=== PATIENT | female | born 1950 | race Caucasian/White ===

== ENCOUNTER 2018-05-08 06:16 | Day surgery (SDC) | payer MEDICARE ==
[2018-05-08] MEDS ORDERED: Sodium Bicarbonate 8.4% SYR* 10 ML SYRINGE ONE (07:18)
[2018-05-08] MEDS ORDERED: Lidocain 1% EPI 1:100,000 * 30 ML MDV ONE (07:18)
[2018-05-08] MEDS ORDERED: ROPIVACAINE 5 MG/ML 30 ML BTL (0.5%) ONE (07:27)
[2018-05-08 08:08] VITALS: BP 142/74
--- NOTE | 2018-05-09 01:08 | OP ---
DATE OF OPERATION: 05/08/18 [facility] DATE OF : 52 SURGEON: Conrado Mckeon MD MECHANIST: KAROLYN Broderick ANESTHESIOLOGIST: None. ANESTHESIA: Local only with 1% lidocaine with epinephrine and bicarbonate. PRE-OP DIAGNOSIS: Right trigger thumb. POST-OP DIAGNOSIS: Right trigger thumb. OPERATIVE PROCEDURE: Right trigger thumb release. INDICATIONS: Kelin has had a thumb that has been locked in extension for about 3 months. We talked about treatment options. She wanted to do the trigger finger release in lieu of an injection. She understands the risks and benefits. FINDINGS: See above and below. ESTIMATED BLOOD LOSS: 2 mL. COMPLICATIONS: None. DESCRIPTION OF PROCEDURE: Kelin was seen in the preoperative holding area. The correct side, site, and procedure were identified. We infiltrated the operative area with 1% lidocaine with epinephrine and bicarbonate. We then came back to the operating room where the arm was prepped and draped in the usual fashion and a time- out was performed. I made a transverse incision in the MP joint flexion crease. The soft tissue was bluntly raised off the tendon sheath. I longitudinally incised the A1 nathalie in line with the FPL tendon. The release was completed distally and proximally with the tenotomy scissors. She could then easily flex and extend at the IP joint of the thumb. We irrigated out the wound. The skin was closed with 4-0 nylon suture. A soft dressing was applied. She was taken to the recovery room in stable condition. [id number]/[facility] #: [id number] HEYDI
== END 2018-05-08 08:17 | disposition home or self-care (01) ==
LOC: OREAST 06:16
PROVIDERS: ATTEND Orthopaedic Surgery Hand Surgery
DX: M65.311 Trigger thumb, right thumb (principal); I10 Essential (primary) hypertension; E78.00 Pure hypercholesterolemia, unspecified
CPT/HCPCS: J2795